=== PATIENT | female | born 1985 | race African-American/Black ===

== ENCOUNTER 2018-06-23 12:00 | Emergency (ER) | payer MEDICAID ==
[~2018-06-23] VITALS: Ht 165.1 cm; Wt 71.2 kg
[2018-06-23 12:10] VITALS: BP 145/110
== END 2018-06-23 14:37 | disposition home or self-care (01) ==
LOC: ER 12:00
DX: S50.12XA Contusion of left forearm, initial encounter (principal); W22.8XXA Striking against or struck by other objects, initial encounter; Y93.89 Activity, other specified; Y99.8 Other external cause status; Y92.89 Other specified places as the place of occurrence of the external cause
CPT/HCPCS: 73090

== ENCOUNTER 2019-04-24 08:01 | Emergency (ER) | payer MEDICAID ==
[~2019-04-24] VITALS: Ht 165.1 cm; Wt 83.0 kg
[2019-04-24 08:09] VITALS: BP 151/82
== END 2019-04-24 09:39 | disposition home or self-care (01) ==
LOC: ER 08:01
DX: J02.9 Acute pharyngitis, unspecified (principal)
CPT/HCPCS: 81002; 81025